=== PATIENT | female | born 1980 | race American Indian/Alaskan Native ===

== ENCOUNTER 2017-02-15 07:18 | Emergency (ER) | payer SELFPAY ==
[2017-02-15 07:26] VITALS: BP 140/83
[2017-02-15] MEDS ORDERED: BICILLIN L-A IM ONE (07:48)
[2017-02-15] MEDS ORDERED: TORADOL IM ONE (07:48)
--- NOTE | 2017-02-15 07:55 | Emergency Department Report ---
ED ENT HPI - General Chief complaint: Sore Throat Stated complaint: SORE THROAT Time Seen by Provider: 02/15/17 07:38 Source: patient Mode of arrival: Ambulatory Limitations: No Limitations - History of Present Illness Initial comments: PT c/o sore throat x 3 days. PT states she thought her pain was due to allergies, but no improvement after taking Benadryl. 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 PT states her son also has been complaining of a sore throat. MD complaint: sore throat Onset/Timin -: Gradual, days(s) Severity scale (0 -10): 10 Quality: sharp, constant Consistency: constant Improves with: none Worsens with: swallowing, eating, medication, other (smelling seafood ) Associated Symptoms: pain with swallowing, sore throat. denies: fever, cough - Related Data Home Medications Medication Instructions Recorded Confirmed Last Taken Lisinopril/Hydrochlorothiazide 1 each PO DAILY 02/08/14 07/21/16 02/08/14 [Zestoretic 20-12.5 mg] Previous Rx's Medication Instructions Recorded Last Taken Type EPINEPHrine [Epipen 2-Amaury] 0.3 mg IM PRN PRN #1 pack 02/15/17 Unknown Rx Ibuprofen [Motrin] 600 mg PO Q8H PRN #15 tablet 02/15/17 Unknown Rx Allergies Allergy/AdvReac Type Severity Reaction Status Date / Time shellfish derived Allergy Itching Verified 08/26/14 11:05 ED Dental HPI - General Chief complaint: Sore Throat Stated complaint: SORE THROAT Time Seen by Provider: 02/15/17 07:38 Source: patient Mode of arrival: Ambulatory Limitations: No Limitations - Related Data Home Medications Medication Instructions Recorded Confirmed Last Taken Lisinopril/Hydrochlorothiazide 1 each PO DAILY 02/08/14 07/21/16 02/08/14 [Zestoretic 20-12.5 mg] Previous Rx's Medication Instructions Recorded Last Taken Type EPINEPHrine [Epipen 2-Amaury] 0.3 mg IM PRN PRN #1 pack 02/15/17 Unknown Rx Ibuprofen [Motrin] 600 mg PO Q8H PRN #15 tablet 02/15/17 Unknown Rx Allergies Allergy/AdvReac Type Severity Reaction Status Date / Time shellfish derived Allergy Itching Verified 08/26/14 11:05 ED Review of Systems ROS: Stated complaint: SORE THROAT Other details as noted in HPI Comment: All other systems reviewed and negative Constitutional: denies: chills, fever ENT: as per HPI, throat pain Respiratory: denies: cough, shortness of breath Gastrointestinal: denies: abdominal pain, nausea, vomiting Genitourinary: denies: abnormal menses (pt states she has gone thru early menopause. pt denies chance of ) ED Past Medical Hx - Past Medical History Previous Medical History?: Yes Hx Hypertension: Yes Hx GERD: Yes Hx Asthma: Yes Additional medical history: Uterine fibroids, Cysts on ovaries - Surgical History Past Surgical History?: Yes Additional Surgical History: Ovarian Cyst Removed - Social History Smoking Status: Never Smoker Substance Use Type: Alcohol - Medications Home Medications: Home Medications Medication Instructions Recorded Confirmed Last Taken Type Lisinopril/Hydrochlorothiazide 1 each PO DAILY 02/08/14 07/21/16 02/08/14 History [Zestoretic 20-12.5 mg] EPINEPHrine [Epipen 2-Amaury] 0.3 mg IM PRN PRN #1 pack 02/15/17 Unknown Rx Ibuprofen [Motrin] 600 mg PO Q8H PRN #15 tablet 02/15/17 Unknown Rx ED Physical Exam - General Limitations: No Limitations General appearance: alert, in no apparent distress, obese - Head Head exam: Present: atraumatic, normocephalic, normal inspection - Eye Eye exam: Present: normal appearance, PERRL, EOMI. Absent: conjunctival injection - ENT ENT exam: Present: mucous membranes moist, TM's normal bilaterally, normal external ear exam - Expanded ENT Exam Expanded Mouth exam: Absent: drooling, trismus Throat exam: Positive: tonsillar erythema, tonsillomegaly, tonsillar exudate. Negative: R peritonsillar mass, L peritonsillar mass - Neck Neck exam: Present: normal inspection, tenderness, full ROM, lymphadenopathy - Respiratory Respiratory exam: Present: normal lung sounds bilaterally. Absent: respiratory distress, chest wall tenderness, accessory muscle use - Cardiovascular Cardiovascular Exam: Present: regular rate, normal rhythm, normal heart sounds - GI/Abdominal GI/Abdominal exam: Present: soft. Absent: tenderness - Extremities Exam Extremities exam: Present: normal inspection, full ROM - Back Exam Back exam: Present: normal inspection, full ROM - Neurological Exam Neurological exam: Present: alert, oriented X3, normal gait - Psychiatric Psychiatric exam: Present: normal affect, normal mood - Skin Skin exam: Present: warm, dry, intact, normal color ED Course Vital Signs 02/15/17 07:23 Temperature 98.5 F Pulse Rate 84 Respiratory 16 Rate Blood Pressure 140/83 O2 Sat by Pulse 99 Oximetry - Reevaluation(s) Reevaluation #1: 02/15/17 07:56 PT aware physical exam is suggestive of strep pharyngitis. Will treat empirically with Bicillin-LA. PT aware that strep pharyngitis is contagious and her son should be evaluated by his MD. PT also aware that she may have developed a fish allergy and she should avoid exposure to seafood. PT aware she will need to follow up with PCP. PT has not questions at this time. - Pulse Oximetry Interpretation Digit-Finger Initial Pulse Oximetry Readin Actions Taken: none ED Medical Decision Making - Differential Diagnosis allergic reaction, angioedema, strep pharyngitis Critical Care Time: No Critical care attestation.: If time is entered above; I have spent that time in minutes in the direct care of this critically ill patient, excluding procedure time. ED Disposition Clinical Impression: Exudative pharyngitis, Shellfish allergy Disposition: DC- TO HOME OR SELFCARE Is pt being admited?: No Does the pt Need Aspirin: No Condition: Stable Instructions: Strep Throat (ED), Food Allergy (ED) Additional Instructions: Try to limit your exposure to known allergens. Carry your Epi-pen with you. Only use for severe allergic reaction Follow up with PCP in 2-3 days Strep throat is contagious - make sure you wash all of your dishes and change your toothbrush Prescriptions: EPINEPHrine [Epipen 2-Amaury] 0.3 mg IM PRN PRN #1 pack PRN Reason: Allergic Reaction Ibuprofen [Motrin] 600 mg PO Q8H PRN #15 tablet PRN Reason: Pain Referrals: DEBI MYERS JR, MD [Staff Physician] - 3-5 Days [facility] [Outside] - 3-5 Days [facility] [Outside] - 3-5 Days Forms: Work/School Release Form(ED) Time of Disposition: 08:10
== END 2017-02-15 08:31 | disposition home or self-care (01) ==
LOC: ED 07:18
DX: J02.9 Acute pharyngitis, unspecified (principal); I10 Essential (primary) hypertension; K21.9 Gastro-esophageal reflux disease without esophagitis; J45.909 Unspecified asthma, uncomplicated; Z91.013 Allergy to seafood
CPT/HCPCS: 96372; 99282; J0561; J1885

== ENCOUNTER 2017-05-17 21:19 | Emergency (ER) | payer OTHER ==
[2017-05-17 22:10] LABS: Bilirubin,Urine NEG (Negative); Blood,Urine NEG (Negative); Ketones,Urine NEG (Negative); Leukocyte Esterase,Urine NEG (Negative); Nitrite,Urine NEG (Negative); Protein,Urine <15 mg/dL mg/dL (Negative); Urobilinogen,Urine < 2.0 mg/dL (<2.0); WBC,Urine < 1.0 /HPF (0.0-6.0)
[2017-05-17 22:21] LABS: Basophils % (Auto) 0.8 % (0.0-1.8); Eosinophils % (Auto) 2.3 % (0.0-4.3); Hematocrit 34.9 % (30.3-42.9); Hemoglobin 11.9 gm/dl (10.1-14.3); Mean Corpuscular HGB Conc 34 % (30-34); Mean Corpuscular Hemoglobin 30 pg (28-32); Mean Corpuscular Volume 87 fl (79-97); Platelet Count 249 K/mm3 (140-440); Red Cell Distribution Width 14.8 % (13.2-15.2); White Blood Count 8.2 K/mm3 (4.5-11.0)
[2017-05-17 22:24] LABS: Blood Urea Nitrogen 18 mg/dL (7-17); Calcium 9.4 mg/dL (8.4-10.2); Carbon Dioxide 26 mmol/L (22-30); Chloride 94.5 mmol/L (98-107); Glucose 96 mg/dL (65-100); Sodium 135 mmol/L (137-145)
[2017-05-17 22:27] LABS: Anion Gap 19 mmol/L; Potassium 4.8 mmol/L (3.6-5.0)
[2017-05-18] MEDS ORDERED: ZOFRAN IV ONE (06:12)
[2017-05-18] MEDS ORDERED: ASPIRIN PO ONE (06:12)
[2017-05-18] MEDS ORDERED: MORPHINE IV ONE (06:12)
[2017-05-18] MEDS ORDERED: NITRO-BID 2% TP ONE (06:12)
--- NOTE | 2017-05-18 06:16 | Emergency Department Report ---
HPI - General Chief Complaint: Chest Pain Time Seen by Provider: 05/18/17 06:05 - [facility] HPI: Room 26 The patient is a 37-year-old female presenting with a chief complaint chest pain. The patient states her pain began yesterday with substernal left-sided chest pain described as a sharp/tightness/heaviness that has been intermittent. Patient denies shortness of breath, nausea/vomiting or diaphoresis with chest pain. At the time of interview the patient originally stated she had no chest pain currently but had it 20 minutes before the anterior; however, towards the end of the interview the patient states the pain has returned and gives it a score of 7/10. The patient states she's never had a stress test or cardiac catheterization Location: Chest Duration: Since yesterday Quality: Sharp/Tightness/heaviness Severity: 7/10 Modifying factors: [see above] Context: [see above] Mode of transportation: Unknown ED Past Medical Hx - Past Medical History Previous Medical History?: Yes Hx Hypertension: Yes Hx GERD: Yes Hx Asthma: Yes Additional medical history: Uterine fibroids, Cysts on ovaries - Surgical History Past Surgical History?: Yes Additional Surgical History: Ovarian Cyst Removed, myomectomy - Family History Family history: no significant - Social History Smoking Status: Former Smoker (none since 2011) Substance Use Type: None (denies illicit drug use), Alcohol (occasionally) - Medications Home Medications: Home Medications Medication Instructions Recorded Confirmed Last Taken Type Lisinopril/Hydrochlorothiazide 1 each PO DAILY 02/08/14 07/21/16 02/08/14 History [Zestoretic 20-12.5 mg] EPINEPHrine [Epipen 2-Amaury] 0.3 mg IM PRN PRN #1 pack 02/15/17 Unknown Rx Ibuprofen [Motrin] 600 mg PO Q8H PRN #15 tablet 02/15/17 Unknown Rx ED Review of Systems ROS: Stated complaint: CP SINCE 0600 AM Other details as noted in HPI Comment: All other systems reviewed and negative Constitutional: denies: chills, fever Eyes: denies: eye pain, eye discharge, vision change ENT: denies: ear pain, throat pain Respiratory: denies: cough, shortness of breath, wheezing Cardiovascular: chest pain Endocrine: no symptoms reported Gastrointestinal: denies: abdominal pain, nausea, diarrhea Genitourinary: denies: urgency, dysuria, discharge Musculoskeletal: denies: back pain, joint swelling, arthralgia Skin: denies: rash, lesions Neurological: denies: headache, weakness, paresthesias Psychiatric: denies: anxiety, depression Hematological/Lymphatic: denies: easy bleeding, easy bruising Physical Exam - Physical Exam Vital Signs: Vital Signs 05/17/17 05/18/17 21:38 01:51 Temperature 98.3 F 98.4 F Pulse Rate 90 75 Respiratory 18 18 Rate Blood Pressure 131/87 134/76 O2 Sat by Pulse 98 100 Oximetry Physical Exam: GENERAL: The patient is well-developed well-nourished female lying on stretcher not appearing to be in acute distress. [] HEENT: Normocephalic. Atraumatic. Extraocular motions are intact. Patient has moist mucous membranes. NECK: Supple. Trachea midline CHEST/LUNGS: Clear to auscultation. There is no respiratory distress noted. HEART/CARDIOVASCULAR: Regular. There is no tachycardia. There is no gallop rub or murmur. ABDOMEN: Abdomen is soft, nontender. Patient has normal bowel sounds. There is no abdominal distention. SKIN: There is no rash. There is no edema. There is no diaphoresis. NEURO: The patient is awake, alert, and oriented. The patient is cooperative. The patient has normal speech MUSCULOSKELETAL: There is no evidence of acute injury. ED Course Vital Signs 05/17/17 05/18/17 21:38 01:51 Temperature 98.3 F 98.4 F Pulse Rate 90 75 Respiratory 18 18 Rate Blood Pressure 131/87 134/76 O2 Sat by Pulse 98 100 Oximetry ED Medical Decision Making - Lab Data Result diagrams: 05/17/17 21:46 05/17/17 21:46 Laboratory Tests 05/17/17 05/17/17 05/17/17 21:46 21:46 21:46 WBC 8.2 RBC 4.00 Hgb 11.9 Hct 34.9 MCV 87 MCH 30 MCHC 34 RDW 14.8 Plt Count 249 Lymph % (Auto) 45.8 H Bell % (Auto) 6.6 Eos % (Auto) 2.3 Baso % (Auto) 0.8 Lymph # 3.8 Bell # 0.5 Eos # 0.2 Baso # 0.1 Seg Neutrophils % 44.5 Seg Neutrophils # 3.7 Sodium 135 L Potassium 4.8 Chloride 94.5 L Carbon Dioxide 26 Anion Gap 19 BUN 18 H Creatinine 0.8 Estimated GFR > 60 BUN/Creatinine Ratio 22.50 Glucose 96 Calcium 9.4 Troponin T < 0.010 HCG, Qual Negative Urine Color Urine Turbidity Urine pH Ur Specific [place] Urine Protein Urine Glucose (UA) Urine Ketones Urine Blood Urine Nitrite Urine Bilirubin Urine Urobilinogen Ur Leukocyte Esterase Urine WBC (Auto) Urine RBC (Auto) U Epithel Cells (Auto) 05/17/17 05/18/17 05/18/17 Unknown 01:15 04:43 WBC RBC Hgb Hct MCV MCH MCHC RDW Plt Count Lymph % (Auto) Bell % (Auto) Eos % (Auto) Baso % (Auto) Lymph # Bell # Eos # Baso # Seg Neutrophils % Seg Neutrophils # Sodium Potassium Chloride Carbon Dioxide Anion Gap BUN Creatinine Estimated GFR BUN/Creatinine Ratio Glucose Calcium Troponin T < 0.010 < 0.010 HCG, Qual Urine Color Straw Urine Turbidity Clear Urine pH 6.0 Ur Specific [place] 1.010 Urine Protein <15 mg/dl Urine Glucose (UA) Neg Urine Ketones Neg Urine Blood Neg Urine Nitrite Neg Urine Bilirubin Neg Urine Urobilinogen < 2.0 Ur Leukocyte Esterase Neg Urine WBC (Auto) < 1.0 Urine RBC (Auto) 1.0 U Epithel Cells (Auto) 1.0 - EKG Data -: EKG Interpreted by Me EKG shows normal: sinus rhythm Rate: normal - EKG Data When compared to previous EKG there are: no significant change Interpretation: normal EKG, unchanged when compared t (08/13/2015) - Radiology Data Radiology results: image reviewed (chest x-ray) interpreted by me: Chest x-ray-no focal infiltrates, no pneumothorax - Differential Diagnosis ACS, GERD, pericarditis, anxiety Critical care attestation.: If time is entered above; I have spent that time in minutes in the direct care of this critically ill patient, excluding procedure time. ED Disposition Clinical Impression: Chest pain Disposition: OP ADMIT IP TO THIS HOSP Is pt being admited?: Yes Does the pt Need Aspirin: Yes Condition: Fair Instructions: Chest Pain (ED) Referrals: PRIMARY CARE, [Primary Care Provider] - 3-5 Days Time of Disposition: 06:31 (hospitalist paged)
[2017-05-18] MEDS ORDERED: MORPHINE ONE (06:23)
--- NOTE | 2017-05-18 07:11 | XRay Report ---
AP CHEST: HISTORY: chest pain AP view of the chest demonstrates a normal mediastinal and cardiac contour with clear lungs and normal bony and soft tissue structures. Mild scoliosis is noted. IMPRESSION: Unremarkable AP chest.
[2017-05-18] MEDS ORDERED: ZOFRAN IV PRN ×2 (07:50→07:55)
[2017-05-18] MEDS ORDERED: NITROSTAT SL PRN (07:55)
--- NOTE | 2017-05-18 07:58 | History and Physical Report ---
<JUANCHO GARG - Last Filed: 05/18/17 09:16> History of Present Illness Date of examination: 05/18/17 Date of admission: 05/18/17 Chief complaint: Chest Pain History of present illness: Patient is a 37-year-old black with a past medical history of hypertension, [id number] diabetes, asthma, and early menopause who presents to emergency department for complaining of left sided chest pain. She states that the pain began yesterday intermittent left side chest pain. The pain was located over his substerna somewhat in the left pigastric area . Patient described as sharp/tightness/heaviness. The sharp pain lasted around 5 minutes. Pain increased with movement, there is no reliving factors. The painful episodes did not increase in intensity or severity during this time. At the ED the patient was given nitroglycerin, ASA and morphine which she claims helped alleviate the pain somewhat. The patient currently rated her pain a score of 5/10. Shee denies shortness of breath, nausea, vomiting and diaphoresis during this episodes of pain. He continued to have several episodes of the pain throughout the night, he decided to come to the emergency department. Past History Past Medical History: diabetes, hypertension, other (Asthma, and early menopause ) Past Surgical History: No surgical history Social history: denies: smoking, alcohol abuse Family history: CAD, hypertension Medications and Allergies Allergies Allergy/AdvReac Type Severity Reaction Status Date / Time shellfish derived Allergy Itching Verified 08/26/14 11:05 Home Medications Medication Instructions Recorded Confirmed Last Taken Type Lisinopril/Hydrochlorothiazide 30 mg PO DAILY 02/08/14 05/18/17 02/08/14 History [Zestoretic 20-12.5 mg] EPINEPHrine [Epipen 2-Amaury] 0.3 mg IM PRN PRN #1 pack 02/15/17 05/18/17 Unknown Rx Ibuprofen [Motrin 600 MG tab] 600 mg PO Q8H PRN #15 tablet 02/15/17 05/18/17 Unknown Rx Estrogens, Conjugated [Premarin] 0.625 mg PO QDAY 05/18/17 05/18/17 Unknown History Metformin HCl [Glucophage] 500 mg PO BID 05/18/17 05/18/17 Unknown History Pantoprazole [Protonix] 40 mg PO QDAY #30 tablet 05/18/17 Unknown Rx Active Meds: Active Medications Acetaminophen (Tylenol) 650 mg PO Q4H PRN PRN Reason: Pain MILD(1-3)/Fever >100.5/SILVERIO Bisacodyl (Dulcolax) 10 mg MN QDAY PRN PRN Reason: Constipation unrelieved by MOM Enoxaparin Sodium (Lovenox) 40 mg SUB-Q QDAY [facility] Miscellaneous Medication (Lisinopril/Hydrochlorothiazide [Zestoretic 20-12.5 Mg] ) 1 each PO DAILY [facility] Morphine Sulfate (Morphine) 2 mg IV Q4H PRN PRN Reason: Pain, Moderate (4-6) Nitroglycerin (Nitrostat) 0.4 mg SL .Q5MIN PRN PRN Reason: Chest Pain Ondansetron HCl (Zofran) 4 mg IM Q4H PRN PRN Reason: Nausea And Vomiting Review of Systems Constitutional: no weight loss, no weight gain, no chills, no sweats Ears, nose, mouth and throat: no ear pain, no ear discharge, no tinnitis, no decreased hearing, no nose pain, no nasal congestion Breasts: no normal, no change in shape, no swelling Cardiovascular: no orthopnea, no rapid/irregular heart beat, no edema, no syncope Respiratory: no cough, no shortness of breath, no dyspnea on exertion Gastrointestinal: no nausea, no diarrhea, no constipation Genitourinary Female: no pelvic pain, no flank pain, no menorrhagia, no dysuria , no urinary frequency Rectal: no pain, no incontinence, no bleeding Musculoskeletal: no neck pain, no shooting arm pain, no arm numbness/tingling, no low back pain, no shooting leg pain Integumentary: no pruritis, no redness, no sores, no wounds, no jaundice Neurological: no transient paralysis, no paralysis, no weakness, no parathesias , no numbness Psychiatric: no anxiety, no memory loss, no change in sleep habits, no change in appetite, no change in libido Endocrine: no cold intolerance, no heat intolerance, no polyphagia, no excessive thirst Hematologic/Lymphatic: no easy bruising, no easy bleeding Allergic/Immunologic: no urticaria, no allergic rhinitis Exam - Constitutional Vitals: Temp Pulse Resp BP Pulse Ox 98.4 F 78 13 103/45 96 05/18/17 01:51 05/18/17 07:47 05/18/17 07:47 05/18/17 07:47 05/18/17 07:50 General appearance: Present: no acute distress - EENT Eyes: Present: PERRL ENT: hearing intact - Neck Neck: Present: supple - Respiratory Respiratory effort: normal Respiratory: bilateral: CTA - Cardiovascular Heart rate: 78 Rhythm: regular Heart Sounds: Present: S1 & S2 - Extremities Extremities: no ischemia Peripheral Pulses: within normal limits - Abdominal General gastrointestinal: Present: soft, non-tender Female genitourinary: Present: deferred - Rectal Rectal Exam: deferred - Integumentary Integumentary: Present: clear, warm, dry - Musculoskeletal Musculoskeletal: strength equal bilaterally - Psychiatric Psychiatric: appropriate mood/affect - Neurologic Neurologic: CNII-XII intact - Allied Health Allied health notes reviewed: nursing Results - Labs CBC & Chem 7: 05/17/17 21:46 05/17/17 21:46 Labs: Laboratory Last Values WBC 8.2 K/mm3 (4.5-11.0) 05/17/17 21:46 RBC 4.00 M/mm3 (3.65-5.03) 05/17/17 21:46 Hgb 11.9 gm/dl (10.1-14.3) 05/17/17 21:46 Hct 34.9 % (30.3-42.9) 05/17/17 21:46 MCV 87 fl (79-97) 05/17/17 21:46 MCH 30 pg (28-32) 05/17/17 21:46 MCHC 34 % (30-34) 05/17/17 21:46 RDW 14.8 % (13.2-15.2) 05/17/17 21:46 Plt Count 249 K/mm3 (140-440) 05/17/17 21:46 Lymph % (Auto) 45.8 % (13.4-35.0) H 05/17/17 21:46 [place] % (Auto) 6.6 % (0.0-7.3) 05/17/17 21:46 Eos % (Auto) 2.3 % (0.0-4.3) 05/17/17 21:46 Baso % (Auto) 0.8 % (0.0-1.8) 05/17/17 21:46 Lymph # 3.8 K/mm3 (1.2-5.4) 05/17/17 21:46 [place] # 0.5 K/mm3 (0.0-0.8) 05/17/17 21:46 Eos # 0.2 K/mm3 (0.0-0.4) 05/17/17 21:46 Baso # 0.1 K/mm3 (0.0-0.1) 05/17/17 21:46 Seg Neutrophils % 44.5 % (40.0-70.0) 05/17/17 21:46 Seg Neutrophils # 3.7 K/mm3 (1.8-7.7) 05/17/17 21:46 Sodium 135 mmol/L (137-145) L 05/17/17 21:46 Potassium 4.8 mmol/L (3.6-5.0) 05/17/17 21:46 Chloride 94.5 mmol/L (98-107) L 05/17/17 21:46 Carbon Dioxide 26 mmol/L (22-30) 05/17/17 21:46 Anion Gap 19 mmol/L 05/17/17 21:46 BUN 18 mg/dL (7-17) H 05/17/17 21:46 Creatinine 0.8 mg/dL (0.7-1.2) 05/17/17 21:46 Estimated GFR > 60 ml/min 05/17/17 21:46 BUN/Creatinine Ratio 22.50 % 05/17/17 21:46 Glucose 96 mg/dL (65-100) 05/17/17 21:46 Calcium 9.4 mg/dL (8.4-10.2) 05/17/17 21:46 Troponin T < 0.010 ng/mL (0.00-0.029) 05/18/17 04:43 HCG, Qual Negative (Negative) 05/17/17 21:46 Urine Color Straw (Yellow) 05/17/17 Unknown Urine Turbidity Clear (Clear) 05/17/17 Unknown Urine pH 6.0 (5.0-7.0) 05/17/17 Unknown Ur Specific [place] 1.010 (1.003-1.030) 05/17/17 Unknown Urine Protein <15 mg/dl mg/dL (Negative) 05/17/17 Unknown Urine Glucose (UA) Neg mg/dL (Negative) 05/17/17 Unknown Urine Ketones Neg mg/dL (Negative) 05/17/17 Unknown Urine Blood Neg (Negative) 05/17/17 Unknown Urine Nitrite Neg (Negative) 05/17/17 Unknown Urine Bilirubin Neg (Negative) 05/17/17 Unknown Urine Urobilinogen < 2.0 mg/dL (<2.0) 05/17/17 Unknown Ur Leukocyte Esterase Neg (Negative) 05/17/17 Unknown Urine WBC (Auto) < 1.0 /HPF (0.0-6.0) 05/17/17 Unknown Urine RBC (Auto) 1.0 /HPF (0.0-6.0) 05/17/17 Unknown U Epithel Cells (Auto) 1.0 /HPF (0-13.0) 05/17/17 Unknown - Imaging and Cardiology Chest x-ray: image reviewed (unremarkable ) Assessment and Plan Assessment and plan: Patient is a 37-year-old black with a past medical history of hypertension, [id number] diabetes, asthma, and early menopause who presents to emergency department for complaining of left sided chest pain. She states that the pain began yesterday intermittent left side chest pain. ASSESSMENT/PLAN Chest Pain We will admit to telemetry floor. EKG normal sinus rate [address] elevation or T-wave inversion. We will get another EKG ordered for a changes that have taken since the first one obtained Negative cardiac enzyme X3 Start on aspirin Nitroglycerin when necessary Morphine ordered for pain Stress test ordered. Diabetes mellitus Accu-Chek before meals and after Sliding-scale insulin/NovoLog Hypertension Continue on home antihypertensive medication IV hydralazine for SBP >160 Closely monitor blood pressure Asthma Sable at this time Start it albuterol when necessary Oxygen when necessary DVT prophylaxis Lovenox Advance Directives: Yes VTE prophylaxis?: Chemical Contraindication Mechanical VTE Prophylaxis: Treatment Not Indicated Plan of care discussed with patient/family: Yes <TRAVIS ARREOLA R - Last Filed: 05/18/17 15:53> History of Present Illness Date of admission: 05/18/17 07:50 Medications and Allergies Active Meds: Active Medications Acetaminophen (Tylenol) 650 mg PO Q4H PRN PRN Reason: Pain MILD(1-3)/Fever >100.5/SILVERIO Aspirin (Aspirin) 325 mg PO QDAY [facility] Last Admin: 05/18/17 12:21 Dose: 325 mg Bisacodyl (Dulcolax) 10 mg MN QDAY PRN PRN Reason: Constipation unrelieved by MOM Dextrose (D50w (25gm) Syringe) 50 ml IV PRN PRN PRN Reason: Hypoglycemia Enoxaparin Sodium (Lovenox) 40 mg SUB-Q QDAY [facility] Last Admin: 05/18/17 12:33 Dose: 40 mg Estrogens Conjugated (Premarin) 0.625 mg PO QDAY [facility] Last Admin: 05/18/17 15:07 Dose: 0.625 mg Hydrochlorothiazide (Hctz) 12.5 mg PO QDAY [facility] Last Admin: 05/18/17 12:34 Dose: 12.5 mg Insulin Aspart (Novolog) 0 units SUB-Q AC [facility] PRN Reason: Protocol Last Admin: 05/18/17 12:22 Dose: Not Given Insulin [facility] ([facility]) [facility] Reason: Protocol Lisinopril (Zestril) 20 mg PO QDAY [facility] Last Admin: 05/18/17 12:34 Dose: 20 mg Morphine Sulfate (Morphine) 2 mg IV Q4H PRN PRN Reason: Pain, Moderate (4-6) Nitroglycerin (Nitrostat) 0.4 mg SL .Q5MIN PRN PRN Reason: Chest Pain Ondansetron HCl (Zofran) 4 mg IV Q4H PRN PRN Reason: Nausea And Vomiting Exam - Constitutional Vitals: Temp Pulse Resp BP Pulse Ox 98.4 F 76 13 111/65 96 05/18/17 01:51 05/18/17 15:37 05/18/17 15:37 05/18/17 15:37 05/18/17 15:37 Results - Labs CBC & Chem 7: 05/17/17 21:46 05/17/17 21:46 Labs: Laboratory Last Values WBC 8.2 K/mm3 (4.5-11.0) 05/17/17 21:46 RBC 4.00 M/mm3 (3.65-5.03) 05/17/17 21:46 Hgb 11.9 gm/dl (10.1-14.3) 05/17/17 21:46 Hct 34.9 % (30.3-42.9) 05/17/17 21:46 MCV 87 fl (79-97) 05/17/17 21:46 MCH 30 pg (28-32) 05/17/17 21:46 MCHC 34 % (30-34) 05/17/17 21:46 RDW 14.8 % (13.2-15.2) 05/17/17 21:46 Plt Count 249 K/mm3 (140-440) 05/17/17 21:46 Lymph % (Auto) 45.8 % (13.4-35.0) H 05/17/17 21:46 [place] % (Auto) 6.6 % (0.0-7.3) 05/17/17 21:46 Eos % (Auto) 2.3 % (0.0-4.3) 05/17/17 21:46 Baso % (Auto) 0.8 % (0.0-1.8) 05/17/17 21:46 Lymph # 3.8 K/mm3 (1.2-5.4) 05/17/17 21:46 [place] # 0.5 K/mm3 (0.0-0.8) 05/17/17 21:46 Eos # 0.2 K/mm3 (0.0-0.4) 05/17/17 21:46 Baso # 0.1 K/mm3 (0.0-0.1) 05/17/17 21:46 Seg Neutrophils % 44.5 % (40.0-70.0) 05/17/17 21:46 Seg Neutrophils # 3.7 K/mm3 (1.8-7.7) 05/17/17 21:46 Sodium 135 mmol/L (137-145) L 05/17/17 21:46 Potassium 4.8 mmol/L (3.6-5.0) 05/17/17 21:46 Chloride 94.5 mmol/L (98-107) L 05/17/17 21:46 Carbon Dioxide 26 mmol/L (22-30) 05/17/17 21:46 Anion Gap 19 mmol/L 05/17/17 21:46 BUN 18 mg/dL (7-17) H 05/17/17 21:46 Creatinine 0.8 mg/dL (0.7-1.2) 05/17/17 21:46 Estimated GFR > 60 ml/min 05/17/17 21:46 BUN/Creatinine Ratio 22.50 % 05/17/17 21:46 Glucose 96 mg/dL (65-100) 05/17/17 21:46 POC Glucose 105 (70-105) 05/18/17 12:16 Calcium 9.4 mg/dL (8.4-10.2) 05/17/17 21:46 Troponin T < 0.010 ng/mL (0.00-0.029) 05/18/17 04:43 HCG, Qual Negative (Negative) 05/17/17 21:46 Urine Color Straw (Yellow) 05/17/17 Unknown Urine Turbidity Clear (Clear) 05/17/17 Unknown Urine pH 6.0 (5.0-7.0) 05/17/17 Unknown Ur Specific [place] 1.010 (1.003-1.030) 05/17/17 Unknown Urine Protein <15 mg/dl mg/dL (Negative) 05/17/17 Unknown Urine Glucose (UA) Neg mg/dL (Negative) 05/17/17 Unknown Urine Ketones Neg mg/dL (Negative) 05/17/17 Unknown Urine Blood Neg (Negative) 05/17/17 Unknown Urine Nitrite Neg (Negative) 05/17/17 Unknown Urine Bilirubin Neg (Negative) 05/17/17 Unknown Urine Urobilinogen < 2.0 mg/dL (<2.0) 05/17/17 Unknown Ur Leukocyte Esterase Neg (Negative) 05/17/17 Unknown Urine WBC (Auto) < 1.0 /HPF (0.0-6.0) 05/17/17 Unknown Urine RBC (Auto) 1.0 /HPF (0.0-6.0) 05/17/17 Unknown U Epithel Cells (Auto) 1.0 /HPF (0-13.0) 05/17/17 Unknown Assessment and Plan Assessment and plan: I saw and evaluated the patient. I agree with the findings and the plan of care as documented in the Nurse Practitioner's~note.
[2017-05-18] MEDS ORDERED: TYLENOL PO PRN (08:00)
[2017-05-18] MEDS ORDERED: DULCOLAX PR PRN (08:00)
[2017-05-18] MEDS ORDERED: MORPHINE IV PRN (09:00)
[2017-05-18] MEDS ORDERED: PROVENTIL IH ONE (09:29)
[2017-05-18] MEDS ORDERED: D50W (25GM) Syringe IV PRN (09:30)
[2017-05-18] MEDS ORDERED: HCTZ PO SCH (10:00)
[2017-05-18] MEDS ORDERED: ZESTRIL PO SCH (10:00)
[2017-05-18] MEDS ORDERED: PREMARIN PO SCH (10:00)
[2017-05-18] MEDS ORDERED: ASPIRIN PO SCH (10:00)
[2017-05-18] MEDS ORDERED: NON-FORMULARY (Lisinopril/Hydrochlorothiazide [Zestoretic 20-12.5 Mg] 1 EACH) PO SCH (10:00)
[2017-05-18] MEDS ORDERED: LOVENOX SUB-Q SCH (10:00)
[2017-05-18] MEDS ORDERED: NOVOLOG SUB-Q SCH ×2 (11:30→22:00)
[2017-05-18 15:41] VITALS: BP 111/65
--- NOTE | 2017-05-18 15:52 | Discharge Summary ---
Providers - Providers Date of Admission: 05/18/17 07:50 Date of discharge: 05/18/17 Attending physician: TRAVIS ARREOLA Primary care physician: [facility] Hospitalization Condition: Fair Hospital course: Discharge diagnosis: Chest Pain EKG normal sinus rate [address] elevation or T-wave inversion. We will get another EKG ordered for a changes that have taken since the first one obtained Negative cardiac enzyme X3 Stress test ordered and was negative Diabetes mellitus cont home meds and ADA diet Hypertension Continue on home antihypertensive medication Asthma Sable at this time Disposition: DC-01 TO HOME OR SELFCARE Time spent for discharge: 32 minutes Core Measure Documentation - Palliative Care Palliative Care/ Comfort Measures: Not Applicable - Core Measures Any of the following diagnoses?: none Exam - Constitutional Vitals: Temp Pulse Resp BP Pulse Ox 98.4 F 76 13 111/65 96 05/18/17 01:51 05/18/17 15:37 05/18/17 15:37 05/18/17 15:37 05/18/17 15:37 General appearance: Present: no acute distress, well-nourished - EENT Eyes: Present: PERRL ENT: hearing intact, clear oral mucosa - Neck Neck: Present: supple, normal ROM - Respiratory Respiratory effort: normal Respiratory: bilateral: CTA - Cardiovascular Heart Sounds: Present: S1 & S2. Absent: rub, click - Extremities Extremities: pulses symmetrical, No edema Peripheral Pulses: within normal limits - Abdominal General gastrointestinal: Present: soft, non-tender, non-distended, normal bowel sounds - Integumentary Integumentary: Present: clear, warm, dry - Musculoskeletal Musculoskeletal: gait normal, strength equal bilaterally - Psychiatric Psychiatric: appropriate mood/affect, intact judgment & insight - Neurologic Neurologic: CNII-XII intact, moves all extremities Plan Activity: advance as tolerated Weight Bearing Status: Weight Bear as Tolerated Diet: low cholesterol, low salt, diabetic Follow up with: PRIMARY CARE, [Primary Care Provider] - 3-5 Days Prescriptions: Pantoprazole [Protonix] 40 mg PO QDAY #30 tablet
== END 2017-05-18 16:25 | disposition home or self-care (01) ==
LOC: ED 21:19 → UNDOADMIN 05-18 07:50 → 4A 05-18 07:50 → ED 05-18 16:25
DX: R07.2 Precordial pain (principal); I10 Essential (primary) hypertension; K21.9 Gastro-esophageal reflux disease without esophagitis; J45.909 Unspecified asthma, uncomplicated; Z91.013 Allergy to seafood
CPT/HCPCS: 36415; 71010; 78452; 80048; 81001; 82962; 84484; 84703; 85025; 93005; 93010; 93017; 96372; 96374; 96375; 99285; A9502; J1650; J2270; J2405

== ENCOUNTER 2017-08-05 03:08 | Emergency (ER) | payer OTHER ==
[2017-08-05] MEDS ORDERED: PROVENTIL IH ONE (03:30)
[2017-08-05 04:14] LABS: Basophils % (Auto) 0.5 % (0.0-1.8); Eosinophils % (Auto) 4.7 % (0.0-4.3); Hematocrit 34.7 % (30.3-42.9); Hemoglobin 11.8 gm/dl (10.1-14.3); Mean Corpuscular HGB Conc 34 % (30-34); Mean Corpuscular Hemoglobin 30 pg (28-32); Mean Corpuscular Volume 89 fl (79-97); Platelet Count 242 K/mm3 (140-440); Red Blood Count 3.93 M/mm3 (3.65-5.03); White Blood Count 6.5 K/mm3 (4.5-11.0)
--- NOTE | 2017-08-05 04:17 | XRay Report ---
FINAL REPORT EXAM: XR CHEST ROUTINE 2V HISTORY: Shortness of breath TECHNIQUE: PA and lateral views of the chest were submitted. FINDINGS: The heart size and mediastinum appear normal. The lungs are clear. Pleural fluid is not seen. The bones and soft tissues reveal a dextroscoliosis of the thoracolumbar spine. IMPRESSION: No active chest disease.
[2017-08-05 04:25] LABS: Anion Gap 19 mmol/L; BUN/Creatinine Ratio 13; Blood Urea Nitrogen 10 mg/dL (7-17); Calcium 9.3 mg/dL (8.4-10.2); Carbon Dioxide 24 mmol/L (22-30); Glucose 94 mg/dL (65-100); Potassium 3.4 mmol/L (3.6-5.0); Sodium 141 mmol/L (137-145)
[2017-08-05] MEDS ORDERED: DELTASONE PO ONE (04:41)
[2017-08-05] MEDS ORDERED: DUONEB *Not for PRN Use IH ONE (04:42)
--- NOTE | 2017-08-05 09:18 | Emergency Department Report ---
HPI - General Chief Complaint: Dyspnea/Respdistress Time Seen by Provider: 08/05/17 08:49 - HPI HPI: She was a 37-year-old female with a history of asthma presents to ED with an asthma exacerbation times today. Patient states she was walking when she started to feel tightness in chest and wheezing and has some shortness of breath. Patient states she has albuterol nebulizer and inhalers at home but did not work at the time of the exacerbation. Patient denies any coughing, fever, chest pain, headache, dizziness, chest pain, ED Past Medical Hx - Past Medical History Previous Medical History?: Yes Hx Hypertension: Yes Hx GERD: Yes Hx Asthma: Yes Additional medical history: Uterine fibroids, Cysts on ovaries - Surgical History Past Surgical History?: Yes Additional Surgical History: Ovarian Cyst Removed, myomectomy - Social History Smoking Status: Former Smoker Substance Use Type: None - Medications Home Medications: Home Medications Medication Instructions Recorded Confirmed Last Taken Type Lisinopril/Hydrochlorothiazide 30 mg PO DAILY 02/08/14 05/18/17 02/08/14 History [Zestoretic 20-12.5 mg] EPINEPHrine [Epipen 2-Amaury] 0.3 mg IM PRN PRN #1 pack 02/15/17 05/18/17 Unknown Rx Ibuprofen [Motrin 600 MG tab] 600 mg PO Q8H PRN #15 tablet 02/15/17 05/18/17 Unknown Rx Estrogens, Conjugated [Premarin] 0.625 mg PO QDAY 05/18/17 05/18/17 Unknown History Metformin HCl [Glucophage] 500 mg PO BID 05/18/17 05/18/17 Unknown History Pantoprazole [Protonix] 40 mg PO QDAY #30 tablet 05/18/17 Unknown Rx ALBUTEROL Inhaler [ProAir HFA 2 puff IH QID PRN #1 pump 08/05/17 Unknown Rx Inhaler] predniSONE [Deltasone] 20 mg PO QDAY #6 tab 08/05/17 Unknown Rx ED Review of Systems ROS: Stated complaint: LATASHA Other details as noted in HPI Constitutional: denies: chills, fever Eyes: denies: eye pain, eye discharge, vision change ENT: denies: ear pain, throat pain, congestion Respiratory: denies: cough, shortness of breath, wheezing Cardiovascular: denies: chest pain, palpitations Endocrine: no symptoms reported Gastrointestinal: denies: abdominal pain, nausea, diarrhea Genitourinary: denies: urgency, dysuria, frequency, hematuria, discharge Musculoskeletal: denies: back pain, joint swelling, arthralgia Skin: denies: rash, lesions Neurological: denies: headache, weakness, paresthesias Psychiatric: denies: anxiety, depression Hematological/Lymphatic: denies: easy bleeding, easy bruising Physical Exam - Physical Exam Vital Signs: Vital Signs 08/05/17 08/05/17 08/05/17 03:12 03:18 03:39 Temperature 98.1 F 98.1 F Pulse Rate 102 H 105 H Pulse Rate [ 98 H Posterior Bilateral Throughout] Respiratory 20 20 Rate Respiratory 18 Rate [Posterior Bilateral Throughout] Blood Pressure 135/78 135/78 O2 Sat by Pulse 100 100 Oximetry 08/05/17 08/05/17 08/05/17 03:53 04:52 05:03 Temperature Pulse Rate Pulse Rate [ 113 H 96 H 108 H Posterior Bilateral Throughout] Respiratory Rate Respiratory 20 14 20 Rate [Posterior Bilateral Throughout] Blood Pressure O2 Sat by Pulse Oximetry Physical Exam: GENERAL: Alert and oriented x3, no apparent distress, Normal Gait, atraumatic. HEAD: Head is normocephalic and a-traumatic. NOSE: Nose symetrical, Nontender,Nares appeared normal. MOUTH:Mouth is well hydrated and without lesions. Tonsils nonerythematous or swollen, Uvula midline, Tongue not elevated. Mucous membranes are moist. Posterior pharynx clear, no exudate or lesions. Patent airways. NECK: Supple. Non edematous, No lymphadenopathy or thyromegaly. No use of assessory muscles LUNGS: Symetrical with respiration, mild wheezing bilat , no rales or crackles , HEART: S1, S2 present, regular rate and rhythm without murmur, no rubs, no gallops. Non tender to palpation ABDOMEN: No organomegaly was noted,Positive bowel sounds, soft, and non- distended. . Nontender to palpation on all Quadrants, NO CVA tenderness. BACK: Full range of motion, no spinal tenderness, nontender to palpation. SKIN: Warm and dry, No lesions, No ulceration or induration present. ED Course Vital Signs 08/05/17 08/05/17 08/05/17 03:12 03:18 03:39 Temperature 98.1 F 98.1 F Pulse Rate 102 H 105 H Pulse Rate [ 98 H Posterior Bilateral Throughout] Respiratory 20 20 Rate Respiratory 18 Rate [Posterior Bilateral Throughout] Blood Pressure 135/78 135/78 O2 Sat by Pulse 100 100 Oximetry 08/05/17 08/05/17 08/05/17 03:53 04:52 05:03 Temperature Pulse Rate Pulse Rate [ 113 H 96 H 108 H Posterior Bilateral Throughout] Respiratory Rate Respiratory 20 14 20 Rate [Posterior Bilateral Throughout] Blood Pressure O2 Sat by Pulse Oximetry ED Medical Decision Making - Lab Data Result diagrams: 08/05/17 03:43 08/05/17 03:43 - Radiology Data Radiology results: report reviewed, image reviewed FINAL REPORT EXAM: XR CHEST ROUTINE 2V HISTORY: Shortness of breath TECHNIQUE: PA and lateral views of the chest were submitted. FINDINGS: The heart size and mediastinum appear normal. The lungs are clear. Pleural fluid is not seen. The bones and soft tissues reveal a dextroscoliosis of the thoracolumbar spine. IMPRESSION: No active chest disease. Transcribed By: RB Dictated By: RONY ORDAZ MD Electronically Authenticated By: RONY ORDAZ MD Signed Date/Time: 08/05/17 0014 - Medical Decision Making 37-year-old female presents to asthma exacerbation ED course: Patient received 2 respiratory breathing treatments while in the ED. Patient received prednisone ED as well Chest x-ray shows no acute pulmonary abnormalities Patient was feeling much better when I examined her. She states that her wheezing is much better and she is breathing much better. Vital signs are normal ,patient is in no respiratory distress she is using no assessory muscles. He is satting at 100% on room air. I discussed the patient to avoid triggers. Critical care attestation.: If time is entered above; I have spent that time in minutes in the direct care of this critically ill patient, excluding procedure time. ED Disposition Clinical Impression: Asthma exacerbation Qualifiers: Asthma severity: moderate Asthma persistence: persistent Qualified Code(s): J45.41 - Moderate persistent asthma with (acute) exacerbation Disposition: DC-01 TO HOME OR SELFCARE Is pt being admited?: No Does the pt Need Aspirin: No Condition: Stable Instructions: Asthma (ED) Additional Instructions: Make sure to follow up with the primary care physician as discussed. Take all your medications as you've been prescribed. If you have any worsening symptoms or develop new symptoms please return to ED immediately. Prescriptions: ALBUTEROL Inhaler [ProAir HFA Inhaler] 2 puff IH QID PRN #1 pump PRN Reason: Shortness Of Breath predniSONE [Deltasone] 20 mg PO QDAY #6 tab Referrals: PRIMARY CARE, [Primary Care Provider] - 3-5 Days [facility] [Outside] - 3-5 Days [facility] [place] [Outside] - 3-5 Days [facility] [Outside] - 3-5 Days Forms: Accompanied Note, Work/School Release Form(ED) Time of Disposition: 09:38
[2017-08-05 09:46] VITALS: BP 128/74
== END 2017-08-05 10:19 | disposition home or self-care (01) ==
LOC: ED 03:08
DX: J45.41 Moderate persistent asthma with (acute) exacerbation (principal); I10 Essential (primary) hypertension; K21.9 Gastro-esophageal reflux disease without esophagitis; Z87.891 Personal history of nicotine dependence
CPT/HCPCS: 36415; 71020; 80048; 84484; 85025; 94640; 99284; J7512

== ENCOUNTER 2018-09-25 01:00 | Emergency (ER) | payer OTHER ==
[2018-09-25 01:22] VITALS: BP 125/89
[2018-09-25 02:18] LABS: BUN/Creatinine Ratio 19; Basophils # (Auto) 0.1 K/mm3 (0.0-0.1); Basophils % (Auto) 0.8 % (0.0-1.8); Blood Urea Nitrogen 17 mg/dL (7-17); Eosinophils # (Auto) 0.2 K/mm3 (0.0-0.4); Eosinophils % (Auto) 2.2 % (0.0-4.3); Hematocrit 38.8 % (30.3-42.9); Hemoglobin 12.7 gm/dl (10.1-14.3); Hemolysis Index 11; Lymphocytes # (Auto) 3.8 K/mm3 (1.2-5.4); Lymphocytes % (Auto) 52.1 % (13.4-35.0); Mean Corpuscular HGB Conc 33 % (30-34); Mean Corpuscular Volume 90 fl (79-97); Monocytes # (Auto) 0.3 K/mm3 (0.0-0.8); Monocytes % (Auto) 4.4 % (0.0-7.3); Platelet Count 271 K/mm3 (140-440); Red Cell Distribution Width 15.5 % (13.2-15.2)
--- NOTE | 2018-09-25 03:43 | XRay Report ---
FINAL REPORT PROCEDURE: XR CHEST ROUTINE 2V TECHNIQUE: A portable AP chest radiograph was obtained at 09/25/2018 03:33 (EST) . CPT 37928 HISTORY: chest pain COMPARISON: No prior studies are available for comparison. FINDINGS: Heart: Normal. Mediastinum/Vessels: Normal. Lungs/Pleural space: Normal. Bony thorax: No acute osseous abnormality. Life support devices: None. IMPRESSION: No acute cardiopulmonary abnormality.
[2018-09-25] MEDS ORDERED: TORADOL IV ONE (03:47)
--- NOTE | 2018-09-25 03:54 | Emergency Department Report ---
ED Chest Pain HPI - General Chief Complaint: Chest Pain Stated Complaint: CHEST PAIN, TINGLING RIGHT LEG Time Seen by Provider: 09/25/18 03:19 Source: patient Mode of arrival: Ambulatory Limitations: No Limitations - History of Present Illness Initial Comments: 38-year-old female with history of asthma and hypertension presents to ED with complaint of right-sided chest pain 1 day. States pain is sharp, intermittent, nonradiating. Denies fever, cough, shortness of breath. Patient reports right lower pattern pain with paresthesias and right leg. She denies swelling or pain in right leg. MD Complaint: chest pain -: days(s) (1) Onset: during rest Pain Location: right chest Pain Radiation: none Severity: mild Quality: sharp Consistency: intermittent Improves With: nothing Worsens With: nothing re: denies: nausea, vomting, diaphoresis, dyspnea Other Symptoms: denies: cough, fever, leg swelling - Related Data Home Medications Medication Instructions Recorded Confirmed Last Taken Lisinopril/Hydrochlorothiazide 30 mg PO DAILY 02/08/14 05/18/17 02/08/14 [Zestoretic 20-12.5 mg] Estrogens, Conjugated (Nf) 0.625 mg PO QDAY 05/18/17 05/18/17 Unknown [Premarin (Nf)] Metformin HCl [Glucophage] 500 mg PO BID 05/18/17 05/18/17 Unknown Previous Rx's Medication Instructions Recorded Last Taken Type EPINEPHrine [Epipen 2-Amaury] 0.3 mg IM PRN PRN #1 pack 02/15/17 Unknown Rx Ibuprofen [Motrin 600 MG tab] 600 mg PO Q8H PRN #15 tablet 02/15/17 Unknown Rx Pantoprazole [Protonix] 40 mg PO QDAY #30 tablet 05/18/17 Unknown Rx ALBUTEROL Inhaler (OR & NICU) 2 puff IH QID PRN #1 pump 08/05/17 Unknown Rx [ProAir HFA Inhaler] predniSONE [Deltasone] 20 mg PO QDAY #6 tab 08/05/17 Unknown Rx Methocarbamol [Robaxin-750] 750 mg PO Q6HR PRN #20 tablet 09/25/18 Unknown Rx Naproxen [Naprosyn] 500 mg PO BID #20 tablet 09/25/18 Unknown Rx traMADol [Ultram] 50 mg PO Q6HR PRN #7 tablet 09/25/18 Unknown Rx Allergies Allergy/AdvReac Type Severity Reaction Status Date / Time shellfish derived Allergy Itching Verified 08/26/14 11:05 Heart Score - HEART Score History: Slightly suspicious EKG: Normal Age: < 45 Risk factors: 1-2 risk factors Troponin: < normal limit HEART Score: 1 ED Review of Systems ROS: Stated complaint: CHEST PAIN, TINGLING RIGHT LEG Other details as noted in HPI Comment: All other systems reviewed and negative Constitutional: denies: chills, fever Respiratory: denies: cough, shortness of breath Cardiovascular: chest pain Musculoskeletal: back pain Neurological: paresthesias ED Past Medical Hx - Past Medical History Previous Medical History?: Yes Hx Hypertension: Yes Hx GERD: Yes Hx Asthma: Yes Additional medical history: Uterine fibroids, Cysts on ovaries - Surgical History Past Surgical History?: Yes Additional Surgical History: Ovarian Cyst Removed, myomectomy - Social History Smoking Status: Never Smoker Substance Use Type: None - Medications Home Medications: Home Medications Medication Instructions Recorded Confirmed Last Taken Type Lisinopril/Hydrochlorothiazide 30 mg PO DAILY 02/08/14 05/18/17 02/08/14 History [Zestoretic 20-12.5 mg] EPINEPHrine [Epipen 2-Amaury] 0.3 mg IM PRN PRN #1 pack 02/15/17 05/18/17 Unknown Rx Ibuprofen [Motrin 600 MG tab] 600 mg PO Q8H PRN #15 tablet 02/15/17 05/18/17 Unknown Rx Estrogens, Conjugated (Nf) 0.625 mg PO QDAY 05/18/17 05/18/17 Unknown History [Premarin (Nf)] Metformin HCl [Glucophage] 500 mg PO BID 05/18/17 05/18/17 Unknown History Pantoprazole [Protonix] 40 mg PO QDAY #30 tablet 05/18/17 Unknown Rx ALBUTEROL Inhaler (OR & NICU) 2 puff IH QID PRN #1 pump 08/05/17 Unknown Rx [ProAir HFA Inhaler] predniSONE [Deltasone] 20 mg PO QDAY #6 tab 08/05/17 Unknown Rx Methocarbamol [Robaxin-750] 750 mg PO Q6HR PRN #20 tablet 09/25/18 Unknown Rx Naproxen [Naprosyn] 500 mg PO BID #20 tablet 09/25/18 Unknown Rx traMADol [Ultram] 50 mg PO Q6HR PRN #7 tablet 09/25/18 Unknown Rx ED Physical Exam - General Limitations: No Limitations General appearance: alert, in no apparent distress - Head Head exam: Present: atraumatic, normocephalic - Eye Eye exam: Present: normal appearance - ENT ENT exam: Present: mucous membranes moist - Neck Neck exam: Present: normal inspection - Respiratory Respiratory exam: Present: normal lung sounds bilaterally. Absent: respiratory distress - Cardiovascular Cardiovascular Exam: Present: regular rate, normal rhythm - GI/Abdominal GI/Abdominal exam: Present: soft. Absent: distended, tenderness - Extremities Exam Extremities exam: Absent: pedal edema, calf tenderness - Back Exam Back exam: Present: paraspinal tenderness (tenderness in right sciatic notch) - Neurological Exam Neurological exam: Present: alert, oriented X3 - Psychiatric Psychiatric exam: Present: normal affect, normal mood - Skin Skin exam: Present: warm, dry, intact, normal color ED Course Vital Signs 09/25/18 01:18 Temperature 98.4 F Pulse Rate 91 H Respiratory 18 Rate Blood Pressure 125/89 O2 Sat by Pulse 98 Oximetry ED Medical Decision Making - Lab Data Result diagrams: 09/25/18 01:36 09/25/18 01:36 - EKG Data -: EKG Interpreted by Me EKG shows normal: sinus rhythm, axis, intervals, QRS complexes, ST-T waves Rate: normal - EKG Data Interpretation: no acute changes - Radiology Data Radiology results: report reviewed, image reviewed - Differential Diagnosis chest wall pain, pneumonia, PE, sciatica Critical care attestation.: If time is entered above; I have spent that time in minutes in the direct care of this critically ill patient, excluding procedure time. ED Disposition Clinical Impression: Chest pain, Sciatica Disposition: - TO HOME OR SELFCARE Is pt being admited?: No Condition: Stable Instructions: Chest Pain (ED), Sciatica (ED), Lumbar Radiculopathy (ED) Prescriptions: Methocarbamol [Robaxin-750] 750 mg PO Q6HR PRN #20 tablet PRN Reason: Spasms Naproxen [Naprosyn] 500 mg PO BID #20 tablet traMADol [Ultram] 50 mg PO Q6HR PRN #7 tablet PRN Reason: Pain Referrals: [facility] [Provider Group] - 3-5 Days PRIMARY CARE,MD [Referring] - 3-5 Days Time of Disposition: 05:43
--- NOTE | 2018-09-25 05:40 | Cat Scan Report ---
FINAL REPORT PROCEDURE: CT ANGIO CHEST TECHNIQUE: Computerized axial tomographic angiography of the chest and pulmonary arteries was perfor med after the IV injection of iodinated nonionic contrast. The image data was postprocessed using max imum intensity projection (MIP) and 2-dimensional multiplanar reformatted (MPR) techniques. The exami nation is specifically tailored to the evaluation of the pulmonary arteries per clinical request. HISTORY: Short of breath 786.09, chest pain 786.50, chest pain COMPARISON: No prior studies are available for comparison. FINDINGS: Heart and pericardium: Normal. Thoracic aorta: Normal. Pulmonary vasculature: Normal. No pulmonary emboli. Lymph nodes: No enlarged thoracic lymph nodes. Lungs: Normal. Pleural space: No effusion, thickening, or pneumothorax. Musculoskeletal structures: No significant abnormality. Upper abdominal structures: No significant abnormality. IMPRESSION: Normal Examination.
== END 2018-09-25 05:57 | disposition home or self-care (01) ==
LOC: ED 01:00
DX: R07.89 Other chest pain (principal); M54.31 Sciatica, right side; I10 Essential (primary) hypertension; K21.9 Gastro-esophageal reflux disease without esophagitis; J45.909 Unspecified asthma, uncomplicated; D25.9 Leiomyoma of uterus, unspecified; Z91.013 Allergy to seafood
CPT/HCPCS: 36415; 71046; 71275; 80048; 84484; 85025; 85379; 93005; 93010; 96374; 99285; J1885; Q9967

== ENCOUNTER 2020-10-28 09:06 | Emergency (ER) | payer OTHER ==
[2020-10-28 09:17] VITALS: BP 150/89
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
== END 2020-10-28 10:43 | disposition home or self-care (01) ==
LOC: ED 09:06
DX: S39.012A Strain of muscle, fascia and tendon of lower back, initial encounter (principal); M79.10 Myalgia, unspecified site; I10 Essential (primary) hypertension; K21.9 Gastro-esophageal reflux disease without esophagitis; J45.909 Unspecified asthma, uncomplicated; Z91.013 Allergy to seafood; Z98.890 Other specified postprocedural states; Z87.891 Personal history of nicotine dependence; Z79.899 Other long term (current) drug therapy; V49.49XA Driver injured in collision with other motor vehicles in traffic accident, initial encounter; Y92.410 Unspecified street and highway as the place of occurrence of the external cause; Y93.89 Activity, other specified; Y99.8 Other external cause status
CPT/HCPCS: 99282

== ENCOUNTER 2022-02-03 22:47 | Emergency (ER) | payer OTHER ==
[2022-02-04] VITALS: BP 141/79
== END 2022-02-04 00:30 | disposition left against medical advice (07) ==
LOC: ED 22:47
DX: R07.9 Chest pain, unspecified (principal); Z53.21 Procedure and treatment not carried out due to patient leaving prior to being seen by health care provider
CPT/HCPCS: 93005